=== PATIENT | female | born 1985 | race American Indian/Alaskan Native ===

== ENCOUNTER 2017-08-18 05:48 | Emergency (ER) | payer BC, OTHER ==
[2017-08-18 06:11] VITALS: BP 148/98
--- NOTE | 2017-08-18 06:58 | XRay Report ---
FINAL REPORT EXAM: XR WRIST 2V LT HISTORY: Left wrist pain and swelling post fall TECHNIQUE: Two views of the left wrist were submitted. FINDINGS: The study is limited without an oblique view. There is no evidence of fracture or dislocation. Soft tissues well maintained IMPRESSION: Negative exam. If localized wrist pain persists, repeat study is recommended to include all three views in 7-10 days to evaluate for occult fracture.
--- NOTE | 2017-08-18 07:00 | XRay Report ---
FINAL REPORT EXAM: XR FOREARM LT HISTORY: Left forearm pain and swelling post fall TECHNIQUE: AP and lateral views of the left forearm were obtained. FINDINGS: There is an acute obliquely oriented nondisplaced fracture through the distal diaphysis of the ulna. More proximally there is a nondisplaced obliquely oriented midshaft fracture of the radius. The elbow joint is not adequately seen for evaluation of the images. IMPRESSION: Acute nondisplaced nonangulated mid-diaphyseal fractures of the radius and ulna as described. The elbow joint is not adequately seen for evaluation.
[2017-08-18] MEDS ORDERED: SUBLIMAZE IV ONE (07:20)
[2017-08-18] MEDS ORDERED: ZOFRAN ONE (07:34)
[2017-08-18] MEDS ORDERED: SUBLIMAZE ONE (07:34)
[2017-08-18] MEDS ORDERED: ZOFRAN IV ONE (07:52)
[2017-08-18] MEDS ORDERED: MORPHINE IV ONE (07:52)
--- NOTE | 2017-08-18 07:54 | Emergency Department Report ---
ED Fall HPI - General Chief Complaint: Extremity Injury, Upper Stated Complaint: FALL Time Seen by Provider: 08/18/17 07:40 Source: patient, family Mode of arrival: Ambulatory Limitations: Other (patient with limited use of left hand due to injury) - History of Present Illness Initial Comments: Fall with left wrist and forearm pain. Patient said that she got up this morning to go downstairs and she had her child and her arm. She says she slipped and missed a step and fell and she says she fell on her left forearm. Patient says she is having pain at 8/10 left forearm. She denies any head injury or neck pain. Denies any back pain. She says she has some pain to her buttocks also. Pain to left forearm is 8-9 out of 10 and dull achy. Worse with movement and touch better with resting. No medication taken prior to coming to the emergency room MD Complaint: fall -: This morning Fall From: standing When Fall Occurred: 1 hour [employer] Fall Witnessed: yes, by family Place Fall Occurred: home Loss of Consciousness: none Prolonged Down Time?: no Symptoms Prior to Fall: none Location - Extremities: Right: Forearm (pain to left forearm at risk.) Severity: severe Severity scale (0 -10): 8 Quality: dull, aching Context: tripped/slipped Associated Symptoms: denies: headache, neck pain, numbness, weakness, chest paint, shortness of breath, abdominal pain, hematuria, unable to walk, lightheaded, vertigo, confusion, other - Related Data Previous Rx's Medication Instructions Recorded Last Taken Type Ibuprofen [Motrin] 600 mg PO Q8H PRN 5 Days #15 tablet 08/18/17 Unknown Rx oxyCODONE /ACETAMINOPHEN [Percocet 1 tab PO Q6HR PRN #20 tablet 08/18/17 Unknown Rx 5/325] Allergies Allergy/AdvReac Type Severity Reaction Status Date / Time bee venom protein (honey bee) Allergy Unknown Verified 08/18/17 06:11 ED Review of Systems ROS: Stated complaint: FALL Other details as noted in HPI Comment: All other systems reviewed and negative Constitutional: no symptoms reported Respiratory: no symptoms reported Cardiovascular: denies: chest pain, palpitations, edema, syncope Genitourinary: denies: urgency, dysuria, hematuria Musculoskeletal: joint swelling, arthralgia, other (pains buttocks). denies: back pain, myalgia Skin: denies: rash Neurological: denies: headache, weakness, numbness, paresthesias, confusion, abnormal gait, vertigo ED Past Medical Hx - Past Medical History Previous Medical History?: No - Surgical History Past Surgical History?: Yes Additional Surgical History: . fibroid - Family History Family history: no significant - Social History Smoking Status: Never Smoker Substance Use Type: None - Medications Home Medications: Home Medications Medication Instructions Recorded Confirmed Last Taken Type Ibuprofen [Motrin] 600 mg PO Q8H PRN 5 Days #15 tablet 08/18/17 Unknown Rx oxyCODONE /ACETAMINOPHEN [Percocet 1 tab PO Q6HR PRN #20 tablet 08/18/17 Unknown Rx 5/325] ED Physical Exam - General Limitations: No Limitations General appearance: alert, in no apparent distress - Head Head exam: Present: atraumatic, normocephalic, normal inspection - Expanded Head Exam Expanded Head exam: Absent: laceration, abrasion, contusion, hematoma, racoon eyes, edwards's sign, general tenderness, tenderness of temporal artery, CSF rhinorrhea , CSF otorrhea - Eye Eye exam: Present: normal appearance, PERRL, EOMI. Absent: nystagmus, periorbital swelling, periorbital tenderness Pupils: Present: normal accommodation - ENT ENT exam: Present: normal exam, normal orophraynx, mucous membranes moist - Neck Neck exam: Present: normal inspection, full ROM, other. Absent: tenderness, meningismus, lymphadenopathy, thyromegaly - Expanded Neck Exam Expanded Neck exam: Absent: tenderness, midline deformity, anterior neck swelling, thyroid mass, carotid bruit, tracheal deviation - Respiratory Respiratory exam: Present: normal lung sounds bilaterally (no C-spine tenderness ). Absent: respiratory distress, chest wall tenderness - Cardiovascular Cardiovascular Exam: Present: regular rate, normal rhythm, normal heart sounds. Absent: systolic murmur, diastolic murmur - GI/Abdominal GI/Abdominal exam: Present: soft, normal bowel sounds. Absent: distended, tenderness, guarding, rebound, rigid, organomegaly, mass, bruit, pulsatile mass , hernia - Extremities Exam Extremities exam: Present: normal inspection, full ROM, normal capillary refill , other. Absent: tenderness, pedal edema, joint swelling, calf tenderness - Expanded Upper Extremity Exam Left General: Absent: other, normal inspection, laceration, abrasion, nail injury (#) , foreign body (no clubbing, cyanosis. Positive swelling to left wrist otherwise all extremities without swelling. +2 pulses in all extremities. No neurovascular compromise. No restriction in movement all extremities. No abrasion, contusion, lacerations to extremities.), amputation, avulsion Shoulder Exam: Present: normal inspection, full ROM. Absent: tenderness, swelling, abrasion, laceration, ecchymosis, deformity, crepidus, dislocation, erythema, tenderness over AC joint Upper Arm exam: Present: normal inspection, full ROM. Absent: tenderness, swelling, abrasion, laceration, ecchymosis, deformity, crepidus, dislocation, erythema Elbow exam: Present: normal inspection, full ROM. Absent: tenderness, swelling , abrasion, laceration, ecchymosis, deformity, crepidus, dislocation, erythema, effusion, pain w/ pronation/supination, tenderness over radial head Forearm Wrist exam: Present: normal inspection, full ROM, tenderness over anatomical snuff box, pain with axial thumb loading. Absent: tenderness, swelling, abrasion, laceration, ecchymosis, deformity, crepidus, dislocation, erythema Hand Wrist exam: Present: tenderness (left wrist), swelling (left wrist), other ( right handed). Absent: normal inspection, full ROM (left wrist limited range of motion due to fracture), abrasion, laceration, ecchymosis, deformity, crepidus, dislocation, erythema, amputation, nail avulsion, subungual hematoma Neuro motor exam: Present: wrist extension intact, thumb opposition intact, thumb IP flexion intact, thumb adduction intact, fingers 2-5 abduction intact Neurosensory exam: Present: 2-point discrimination, radial nerve intact, ulnar nerve intact, median nerve intact Vascular: Present: normal capillary refill, radial pulse, brachial pulse, ulnar pulse. Absent: vascular compromise, Pallo, pulse deficit radial art, pulse deficit ulnar art, pulse deficit brachial art - Back Exam Back exam: Present: normal inspection, full ROM, other (ambulates without any difficulties). Absent: tenderness, CVA tenderness (R), CVA tenderness (L), muscle spasm, paraspinal tenderness, vertebral tenderness, rash noted - Neurological Exam Neurological exam: Present: alert, oriented X3, normal gait, reflexes normal. Absent: motor sensory deficit - Psychiatric Psychiatric exam: Present: normal affect, normal mood - Skin Skin exam: Present: warm, dry, intact, normal color. Absent: rash ED Course Vital Signs 08/18/17 06:07 Temperature 98.7 F Pulse Rate 91 H Respiratory 18 Rate Blood Pressure 148/98 O2 Sat by Pulse 100 Oximetry - Reevaluation(s) Reevaluation #1: 08/18/17 08:32 Patient given 4 mg IV and Zofran 4 mg IV pre-splinted. She tolerated procedure well. Neurovascular intac after splint placement .patient will good color, movement, sensation and temperature to fingers of left hand - Orthopedic Splinting/Casting Injury #1 Side: left Upper Extremity Injury Location: wrist Upper Extremity Immobilizer: sling/shoulder immobilize, sugartong splint Additional Comments: Patient with good color, sensation, temperature, movement and sensation to fingers of left hand. ED Medical Decision Making - Radiology Data Radiology results: report reviewed X-ray of left forearm and wrist reveal a patient with acute obliquely oriented nondisplaced fracture through the distal diaphysis of the ulnar. More proximally there is a nondisplaced obliquely oriented midshaft fracture of the radius.. - Medical Decision Making ED course: She tears status post accidentally falling and this morning. She is having pain to her left forearm and wrist. Physical findings for swelling to left wrist area with limited range of motion. Patient with tenderness to palpate to wrist and proximally above left wrist. X-ray findings for ulnar and radial fracture left extremity. Patient with good color, sensation, movement and temperature to extremities. She has no signs of compartment syndrome. I discussed the patient and family that she has a fracture of her forearm in 2 places and will need to have follow-up with orthopedic doctor. I discussed pain placement and splint care. She was given morphine 4 mg IV and Zofran 4 mg IV prior to splinting and sugar tong splintplaced and patient tolerated well with good neurovascular check after splint placement. Patient and given Percocet 5/325 2 tablets prior to discharge. Discharge home with prescription for Percocet and Motrin and to follow-up with Dr. Nuñez orthopedic doctor to call today to schedule an appointment for follow-up. She voiced understanding of discharge instruction and treatment plan and discharged home in stable condition with her family. See procedure note for details on splinted Critical care attestation.: If time is entered above; I have spent that time in minutes in the direct care of this critically ill patient, excluding procedure time. ED Disposition Clinical Impression: Arthralgia of left forearm Fracture of radius and ulna Qualifiers: Encounter type: initial encounter Fracture type: closed Laterality: left Qualified Code(s): S52.92XA - Unspecified fracture of left forearm, initial encounter for closed fracture; S52.202A - Unspecified fracture of shaft of left ulna, initial encounter for closed fracture; S52.202A - Unspecified fracture of shaft of left ulna, initial encounter for closed fracture Injury of left forearm Qualifiers: Encounter type: initial encounter Qualified Code(s): S59.912A - Unspecified injury of left forearm, initial encounter Fall, accidental Qualifiers: Encounter type: initial encounter Qualified Code(s): W19.XXXA - Unspecified fall, initial encounter Disposition: TO HOME OR SELFCARE Is pt being admited?: No Does the pt Need Aspirin: No Condition: Stable Instructions: Fall Prevention (ED), Wrist Fracture in Adults (ED), Splint Care (ED) Additional Instructions: Please see discharge instructions on fracture and splint care Please follow up with orthopedic doctor as instructed do not drive or operate heavy machinery while taking Percocet as this medication causes drowsiness Prescriptions: Ibuprofen [Motrin] 600 mg PO Q8H PRN 5 Days #15 tablet PRN Reason: Pain oxyCODONE /ACETAMINOPHEN [Percocet 5/325] 1 tab PO Q6HR PRN #20 tablet PRN Reason: Pain, Moderate (4-6) Referrals: MARIA ESTHER NUÑEZ MD [Staff Physician] - 2-3 Days Forms: Accompanied Note, Work/School Release Form(ED)
[2017-08-18] MEDS ORDERED: PERCOCET 5/325 PO ONE (08:21)
== END 2017-08-18 09:21 | disposition home or self-care (01) ==
LOC: ED 05:48
DX: S52.392A Other fracture of shaft of radius, left arm, initial encounter for closed fracture (principal); S52.692A Other fracture of lower end of left ulna, initial encounter for closed fracture; D21.9 Benign neoplasm of connective and other soft tissue, unspecified; M79.1 Myalgia; Z91.030 Bee allergy status; W10.9XXA Fall (on) (from) unspecified stairs and steps, initial encounter; Y93.89 Activity, other specified; Y99.8 Other external cause status; Y92.009 Unspecified place in unspecified non-institutional (private) residence as the place of occurrence of the external cause
CPT/HCPCS: 29125; 73090; 73100; 96374; 96375; 99284; J2270; J2405; J3010

== ENCOUNTER 2017-10-27 16:25 | Emergency (ER) | payer OTHER ==
[2017-10-27 17:31] VITALS: BP 152/87
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
== END 2017-10-27 20:52 | disposition home or self-care (01) ==
LOC: ED 16:25
DX: Z04.1 Encounter for examination and observation following transport accident (principal); Z91.030 Bee allergy status; V87.7XXA Person injured in collision between other specified motor vehicles (traffic), initial encounter; Y93.89 Activity, other specified; Y99.8 Other external cause status; Y92.410 Unspecified street and highway as the place of occurrence of the external cause
CPT/HCPCS: 99282

== ENCOUNTER 2022-04-23 05:30 | Emergency (ER) | payer BC, OTHER ==
[2022-04-23 05:45] VITALS: BP 152/85
--- NOTE | 2022-04-23 11:09 | Emergency Department Report ---
<ANGEL MAGUIRE - Last Filed: 04/23/22 13:00> ED Abdominal Pain HPI - General Chief Complaint: Nausea/Vomiting/Diarrhea Stated Complaint: NUMBNESS,IN ARMS,DIARRHEA,RONN PUI?: No Time Seen by Provider: 04/23/22 11:04 Source: patient Mode of arrival: Ambulatory Limitations: No Limitations - History of Present Illness Initial Comments: 36 YO COMES TO ER WITH GENERAL FATIGUE AND CO DIARRHEA. STOOL IS WATERY NO NV NO FEVER/CHILLS NO ABD PAIN LMP 9-10 RX NONE NO CP NO SOB - Related Data Previous Rx's Medication Instructions Recorded Last Taken Type Ibuprofen [Motrin] 600 mg PO Q8H PRN 5 Days #15 tablet 08/18/17 Unknown Rx oxyCODONE /ACETAMINOPHEN [Percocet 1 tab PO Q6HR PRN #20 tablet 08/18/17 Unknown Rx 5/325] Cyclobenzaprine [Flexeril] 10 mg PO QHS PRN #7 tablet 10/27/17 Unknown Rx Ibuprofen [Motrin] 600 mg PO Q8H PRN #30 tablet 10/27/17 Unknown Rx Allergies Allergy/AdvReac Type Severity Reaction Status Date / Time bee venom protein (honey bee) Allergy Unknown Verified 08/18/17 06:11 ED Review of Systems Comment: All other systems reviewed and negative ED Past Medical Hx - Past Medical History Previous Medical History?: Yes Additional medical history: ANEMIA PRIOR TO HER FIBROID SURGERY - Surgical History Past Surgical History?: Yes Additional Surgical History: . fibroid - Family History Family history: no significant - Social History Smoking Status: Unknown if ever smoked Substance Use Type: None - Medications Home Medications: Home Medications Medication Instructions Recorded Confirmed Last Taken Type Ibuprofen [Motrin] 600 mg PO Q8H PRN 5 Days #15 tablet 08/18/17 Unknown Rx oxyCODONE /ACETAMINOPHEN [Percocet 1 tab PO Q6HR PRN #20 tablet 08/18/17 Unknown Rx 5/325] Cyclobenzaprine [Flexeril] 10 mg PO QHS PRN #7 tablet 10/27/17 Unknown Rx Ibuprofen [Motrin] 600 mg PO Q8H PRN #30 tablet 10/27/17 Unknown Rx ED Physical Exam - General Limitations: No Limitations General appearance: alert, in no apparent distress - Head Head exam: Present: atraumatic, normocephalic - Eye Eye exam: Present: normal appearance - ENT ENT exam: Present: mucous membranes moist - Neck Neck exam: Present: normal inspection - Respiratory Respiratory exam: Present: normal lung sounds bilaterally. Absent: respiratory distress - Cardiovascular Cardiovascular Exam: Present: regular rate, normal rhythm. Absent: systolic murmur, diastolic murmur, rubs, gallop - GI/Abdominal GI/Abdominal exam: Present: soft, normal bowel sounds - Extremities Exam Extremities exam: Present: normal inspection - Back Exam Back exam: Present: normal inspection - Neurological Exam Neurological exam: Present: alert, oriented X3 - Psychiatric Psychiatric exam: Present: normal affect, normal mood - Skin Skin exam: Present: warm, dry, intact, normal color. Absent: rash ED Course - Reevaluation(s) Reevaluation #1: 04/23/22 13:01 NO DIARRHEA SINCE IN THE ER ED Medical Decision Making - Lab Data Result diagrams: 04/23/22 11:25 04/23/22 11:25 - Medical Decision Making Labs 04/23/22 04/23/22 04/23/22 11:14 11:25 11:25 WBC 5.3 RBC 4.18 Hgb 9.7 L Hct 30.6 MCV 73 L MCH 23 L MCHC 32 RDW 16.6 H Plt Count 257 Lymph % (Auto) 24.0 [place] % (Auto) 8.3 H Eos % (Auto) 5.9 H Baso % (Auto) 0.7 Lymph # (Auto) 1.3 [place] # (Auto) 0.4 Eos # (Auto) 0.3 Baso # (Auto) 0.0 Seg Neutrophils % 61.1 Seg Neutrophils # 3.2 Sodium 140 Potassium 4.3 Chloride 103.2 Carbon Dioxide 22 Anion Gap 19 BUN 9 Creatinine 0.8 Estimated GFR > 60 BUN/Creatinine Ratio 11 Glucose 101 H Calcium 9.3 Total Bilirubin 0.50 AST 13 ALT 11 Alkaline Phosphatase 67 Total Protein 7.4 Albumin 4.5 Albumin/Globulin Ratio 1.6 Lipase 38 Urine Color Yellow Urine Turbidity Turbid Urine pH 5.0 Ur Specific [place] 1.029 Urine Protein 30 mg/dl Urine Glucose (UA) Neg Urine Ketones Neg Urine Blood Neg Urine Nitrite Neg Urine Bilirubin Neg Urine Urobilinogen < 2 Ur Leukocyte Esterase Neg Urine WBC (Auto) 1.0 Urine RBC (Auto) Not Reportable U Epithel Cells (Auto) 1.0 Amorphous Crystals 3+ Urine Mucus 3+ Vital Signs 04/23/22 04/23/22 05:43 05:45 Temperature 97.9 F Pulse Rate 80 Respiratory 18 Rate Blood Pressure 152/85 O2 Sat by Pulse 100 Oximetry LAB REVIEWED WITH PT SHE WAS OF THE IMPRESSION HER ANEMIA WENT AWAY P HER SURGERY IN 2016 SHE DOES HAVE HEAVY CYCLES BUT THAT IS HER USUAL NO TACHYCARDIA OR HYPOTENSION NO CP NO SOB NO BLOODY STOOLS PT WILL FOLLOW UP WITH PCP FOR ANEMIA WORK UP DC HOME WITH DC PLAN OF CARE INCLUDING DIET, MEDS, ACTIVITY AND FOLLOW UP. SHE VERBALIZES UNDERSTANDING OF PLAN OF CARE. - Differential Diagnosis DIARRHEA/FATIGUE RO INFECTION/ VIRAL ETIOLOGY ED Disposition Clinical Impression: Diarrhea Disposition: 01 HOME / SELF CARE / HOMELESS Is pt being admited?: No Does the pt Need Aspirin: No Condition: Stable Instructions: Diarrhea, Adult Additional Instructions: FOLLOW UP WITH PCP REFERRAL BELOW DIET AND ACTIVITY ASS TOLERATED AVOID MOTRIN OR NSAIDS USE TYLENOL FOR ANY PAIN Referrals: CHELO OCASIO DO [Primary Care Provider] - 3-5 Days MIK THOMPSON MD [Staff Physician] - 3-5 Days Forms: Work/School Release Form(ED) Time of Disposition: 12:45 <LUZ PEDRO - Last Filed: 04/25/22 00:39> ED Review of Systems ROS: Stated complaint: NUMBNESS,IN ARMS,DIARRHEA,RONN Other details as noted in HPI ED Course Vital Signs 04/23/22 04/23/22 05:43 05:45 Temperature 97.9 F Pulse Rate 80 Respiratory 18 Rate Blood Pressure 152/85 O2 Sat by Pulse 100 Oximetry ED Medical Decision Making - Lab Data Result diagrams: 04/23/22 11:25 04/23/22 11:25 - Medical Decision Making This patient was seen independently by the midlevel provider. I was available for consult however I was not involved in the decision making or the disposition of this patient. Luz Pedro Critical care attestation.: If time is entered above; I have spent that time in minutes in the direct care of this critically ill patient, excluding procedure time.
[2022-04-23 12:06] LABS: Bilirubin,Urine NEG (Negative); Blood,Urine NEG (Negative); Color,Urine Yellow (Yellow); Urobilinogen,Urine < 2 mg/dL (<2.0)
[2022-04-23 12:24] LABS: Basophils % (Auto) 0.7 % (0.0-1.8); Eosinophils # (Auto) 0.3 K/mm3 (0.0-0.4); Eosinophils % (Auto) 5.9 % (0.0-4.3); Hematocrit 30.6 % (30.3-42.9); Hemoglobin 9.7 gm/dl (10.1-14.3); Lymphocytes # (Auto) 1.3 K/mm3 (1.2-5.4); Mean Corpuscular HGB Conc 32 % (30-34); Mean Corpuscular Volume 73 fl (79-97); Monocytes # (Auto) 0.4 K/mm3 (0.0-0.8); Monocytes % (Auto) 8.3 % (0.0-7.3); Platelet Count 257 K/mm3 (140-440); Red Blood Count 4.18 M/mm3 (3.65-5.03); Red Cell Distribution Width 16.6 % (13.2-15.2)
[2022-04-23 12:30] LABS: Amorphous Crystals,Urine 3+; Mucus,Urine 3+ /HPF
[2022-04-23 12:44] LABS: Alanine Aminotransferase 11 units/L (7-56); Albumin 4.5 g/dL (3.9-5); BUN/Creatinine Ratio 11; Blood Urea Nitrogen 9 mg/dL (7-17); Calcium 9.3 mg/dL (8.4-10.2); Hemolysis Index 6
[2022-04-23 12:48] LABS: HCG Qualitative,Urine Negative (Negative)
== END 2022-04-23 13:00 | disposition home or self-care (01) ==
LOC: ED 05:30
DX: R19.7 Diarrhea, unspecified (principal); R53.83 Other fatigue; Z98.890 Other specified postprocedural states; Z79.899 Other long term (current) drug therapy
CPT/HCPCS: 36415; 80053; 81001; 81025; 83690; 85025; 99283